=== PATIENT | female | born 1990 | race Caucasian/White ===

== ENCOUNTER 2017-02-02 07:02 | Day surgery (SDC) | payer OTHER ==
[~2017-02-02 07:02] MED LIST: Buffered Lidocaine 0.9% SYRIN* 5 ML/SYR SYRINGE INTRADERM ONE; Famotidine IV* 10 MG/ML 2 ML (20 mg) IV ONE; Morphine INJ* 2 MG/ML 1 ML SYRINGE IV PRN; PROCHLORPERAZINE INJ 5 MG/ML 2 ML VIAL IV PRN; oxyCODONE/Acetamin 5/325 MG* TAB PO PRN
[2017-02-02 07:16] LABS: UR Preg Internal Control QC Line Present
[2017-02-02] MEDS ORDERED: Buffered Lidocaine 0.9% SYRIN* 5 ML/SYR SYRINGE ONE (07:32)
[2017-02-02] MEDS ORDERED: Famotidine IV* 10 MG/ML 2 ML (20 mg) ONE (07:32)
[2017-02-02] MEDS ORDERED: KETAMINE HCL* 50 MG/ML 10 ML VIAL ONE (08:44)
[2017-02-02] MEDS ORDERED: Atracurium* 10 MG/ML 10 ML VIAL ONE (08:44)
[2017-02-02] MEDS ORDERED: fentaNYL* 50 MCG/ML 2 ML VIAL (100 MCG VIAL) ONE ×2 (08:44→09:34)
[2017-02-02] MEDS ORDERED: Midazolam* 1 MG/ML 2 ML VIAL (2 MG) ONE (08:44)
[2017-02-02] MEDS ORDERED: Ondansetron INJ* 2 MG/ML VIAL ONE (09:03)
[2017-02-02] MEDS ORDERED: Glycopyrrolate IV* 0.2 MG/ML 1 ML VIAL ONE ×2 (09:03→09:20)
[2017-02-02] MEDS ORDERED: PROCHLORPERAZINE INJ 5 MG/ML 2 ML VIAL ONE ×2 (09:03→09:48)
[2017-02-02] MEDS ORDERED: Neostigmine Methylsulfate* 2 MG/2 ML SYRINGE ONE ×2 (09:03→09:20)
[2017-02-02] MEDS ORDERED: Dexamethasone IV* 4 MG/ML 1 ML (4 MG) ONE (09:03)
[2017-02-02] MEDS ORDERED: Propofol* 10 MG/ML 20 ML BTL IV PUSH ONE (09:03)
[2017-02-02] MEDS ORDERED: Lidocaine 2% PF * 5 ML VIAL ONE (09:03)
[2017-02-02] MEDS: fentaNYL* 50 MCG/ML 2 ML VIAL (100 MCG VIAL) IV PRN ×4 (09:35→09:52)
[2017-02-02] MEDS ORDERED: oxyCODONE/Acetamin 5/325 MG* TAB ONE (09:48)
[2017-02-02 10:55] VITALS: BP 118/79
--- NOTE | 2017-02-03 06:02 | OP ---
DATE OF OPERATION: 02/02/17 - [facility] DATE OF : 88 SURGEON: Parviz Mcconnell MD CURB HOP: None. ANESTHESIOLOGIST: Ramirez Brenner MD ANESTHESIA: General. PRE-OP DIAGNOSIS: Chronic tonsillitis. POST-OP DIAGNOSIS: Chronic tonsillitis. OPERATIVE PROCEDURE: Tonsillectomy. ESTIMATED BLOOD LOSS: Negligible. SPECIMENS: Right and left tonsils to pathology. INDICATION FOR PROCEDURE: This is a 26-year-old woman who has had multiple recurrent strep tonsillitis. DESCRIPTION OF PROCEDURE: She was brought to the operating room on 02/02/17 for elective tonsillectomy. General anesthesia was induced and an oral endotracheal tube was placed, the patient was draped, table turned, and time-out performed. A McIvor mouth gag was used to facilitate exposure of the oropharynx and was suspended from the [place] stand. The right tonsil was grasped with straight Allis forceps, retracted medially and dissected free of its fossa with a coblation device at a setting of 7 and 3. There was no bleeding. The left tonsil was removed in an identical fashion again with no bleeding. Once the tonsils were removed, the superior and inferior pole regions were prophylactically cauterized with the bipolar function of the device at a setting of 5. The mouth gag was then let down for a period of a minute. It was then opened again, there was no evidence of active bleeding. An orogastric tube was passed into the stomach and the stomach contents were evacuated. The patient was then returned to the care of the anesthesiologist, extubated, and delivered to the PACU in stable condition. [id number]/[facility] #: [id number] MTDD
== END 2017-02-02 11:15 | disposition home or self-care (01) ==
LOC: OR 07:02
PROVIDERS: ATTEND Otolaryngology
DX: J35.01 Chronic tonsillitis (principal); E03.9 Hypothyroidism, unspecified
CPT/HCPCS: 81025; 88304; A9270-GY; J0780; J1100; J2250; J2405; J2704; J3010

== ENCOUNTER 2018-12-15 08:14 | Inpatient (IN) | payer OTHER ==
[2018-12-15] MEDS ORDERED: Oxytocin in LR* 20 UNITS/1,000 ML BAG IVPB SCH ×2 (09:00→20:00)
[2018-12-15] MEDS ORDERED: Penicillin G Potassium IV* 5,000,000 UNITS in NS 0.9% 100 ML* 100 ML IVPB ONE (09:00)
--- NOTE | 2018-12-15 09:01 | HP ---
General Information - Reason for Visit IUP at 40-08/14 here for term IOL - General Information Maternal Age: 28 Grav: 4 Para: 1 SAB: 2 IEA: 0 Estimated Due Date: 12/14/18 Determined By: LMP Gestational Age in Weeks/Days: 40-08/14 Maternal Blood Type and Rh: O Positive - Results this Serology/RPR Result: Non-Reactive Rubella Result: Non-Immune HBsAg Result: Negative HIV Result: Negative GBS Culture Result: Positive Past Medical History Delivery History: Hx Uncomplicated Vaginal Delivery Delivery History Comment: 05/2016 8lbs 12oz female. Delivered at [facility] [place] by Beena Stanton CNM 11/2017 SAB 02/2018 SAB Pertinent Past Medical History: See Records Past Medical History Comment: Thyroid disease Seasonal allergies Pertinent Past Surgical History: See Records Past Surgical History Comment: [place] tooth extraction 01/2006 Oral surgery 07/2016 I & D right breast mastitis 01/2017 Tonsillectomy Pertinent Family History: See Records Family History Comment: Father: A-Fib, COPD, heart murmur, DM Mother: Adan's Thyroiditis Sister: Anxiety, Bipolar PGM: . Ovarian cancer PGF: . Heart disease MGF: . Heart disease - Antepartal Records Antepartal Records: Reviewed, Uncomplicated Review of Systems Constitutional: Comfortable CV Complaint: No Respiratory: Shortness of Breath: No Gastrointestinal: No Nausea/Vomiting, Normal Bowel Movement Genitourinary: No Dysuria, No Bleeding, No Leaking Fluid Musculoskeletal: No Complaint Neurological: No Headache, No Visual Changes Movement: Normal Exam Allergies/Adverse Reactions: Allergies MS Sulfa Antibiotics [Sulfa Antibiotics] Allergy (Verified 02/02/17 07:36) Hives SEASONAL Allergy (Uncoded 02/02/17 07:36) Congestion BP: 123/78 HR 84 RR 17 SpO2 98% on RA T 98.6 - Measurements Height: 5 ft 9 in Weight: 175 lb Weight in lbs: 175.764261 Body Mass Index (BMI): 25.8 Pre- Weight: 140 lb Weight Gained This : 35 lbs and 0 ozs - Exam Breast: Breast Exam Deferred CVA: No CVA Tenderness Extremities: No Edema Heart: Normal Rhythm/Heart Sounds HEENT: No Significant Findings Lungs: Clear Bilaterally Rectal: Rectal Exam Deferred Reflexes: DTR 2+ Thyroid: No Thyromegaly - Abdominal Exam Abdomen Exam: Non-Tender - Ultrasound/Biophysical Profile Ultrasound Status: Not Done Targeted Exam Findings See L&D Outpatient Visit Provider Note for Findings: N/A Estimated Weight: 9lbs by Henrry Cervical Exam: 3cm, 4cm Effacement: 70% Station: 0 Presenting Part: Vertex Membrane Status: Intact Sterile Speculum Exam: Not done Bleeding/Discharge: None EFM Findings - External Monitor Findings Baseline Heart Rate: 125 External Monitor Findings: Accelerations Present, No Pattern of Variable or Late Decelerations, Variability Moderate, Baseline Stable External Monitor Findings Comment: No evidence of metabolic acidemia Contractions: None Assessment/Plan - Assessment IUP at 40-1/7 here for term IOL No evidence of metabolic acidemia - Obstetrical Risk Factors Obstetrical Risk Factors: GBS Positive - plan abx per protocol once in active labor or with SROM - Plan Plan: Induction Plan Comment: P: Admit. Counseled for IV pitocin and possible amniotomy. Pt and FOB agree. Will want CEI placement with increased discomfort. Anticipate . Dr. Fairbanks aware of pt presence and condition - Date/Time of Admission Date of Admission: 12/15/18 Time of Admission: 08:37
[2018-12-15 09:27] LABS: ABS Lymphocytes 0.7 10^3/ul (1.0-4.8); ABS Monocytes 0.7 10^3/ul (0-0.8); ABS Neutrophils 6.4 10^3/ul (1.5-7.7); Eosinophil % 0.4 %; Hematocrit 34 % (35-47); Hemoglobin 12.2 g/dL (12.0-16.0); Lymphocyte % 9.5 %; Mean Corpuscular HGB Conc 36 g/dL (31-36); Mean Corpuscular Hemoglobin 32 pg (27-31); Mean Corpuscular Volume 89 fL (80-97); Mean Platelet Volume 8.7 fL (7.4-10.4); Nucleated Red Blood Cells % 0.2; Platelet Count 171 10^3/uL (150-450); Red Blood Count 3.86 10^6 /uL (3.70-4.87); Red Cell Distribution Width 13 % (10.5-15); White Blood Count 7.9 10^3/uL (3.5-10.8)
--- NOTE | 2018-12-15 12:24 | PN ---
Progress Note - Progress Note Date of Service: 12/15/18 Note: S: Pt up on ball, denies strong UCs but aware of them O: BP 107/70 HR 90 T 97.9 FHT 150bpm. Moderate variability. +Accels. No decels UCs q 3-4. IV pitocin increased from 3mu/min to 5mu/min VE: 4-5/70%/vtx 0, membranes swept IV penicillin up as of 1100 for GBS prophylaxis A: IUP at 40-1/7 in latent labor No evidence of metabolic acidemia P: Consider AROM in 1-2 hours or re-evaluate sooner PRN.
--- NOTE | 2018-12-15 14:14 | PN ---
Progress Note - Progress Note Date of Service: 12/15/18 Note: S: Pt feeling ready for AROM O: BP 119/79 HR 75 FHT 125bpm. Moderate variability. +Accels. No decels UCs q 2-3 IV pit at 5mu/min VE: 4-5cm/80%/vtx 0 station, AROM moderate clear fluid A: IUP at 40-1/7 in early active labor No evidence of metabolic acidemia GBS+, first dose of abx given at 1100 P: Pt will request epidural with increased discomfort. Anticipate
[2018-12-15] MEDS ORDERED: Penicillin G Potassium IV* 2,500,000 UNITS in NS 0.9% 100 ML* 100 ML IVPB SCH (15:00)
[2018-12-15] MEDS ORDERED: OBEPIDURAL* 250 ML EPIDURAL ONE (15:01)
[2018-12-15] MEDS: Lactated Ringers 1000 ML Bag* 1,000 ML IV SCH ×2 (15:06→18:34)
--- NOTE | 2018-12-15 15:06 | PN ---
Progress Note - Progress Note Date of Service: 12/15/18 Note: Quick Note Pt requesting CEI placement. Anesthesia paged for consult
--- NOTE | 2018-12-15 16:38 | PN ---
Progress Note - Progress Note Date of Service: 12/15/18 Note: S: Pt feeling comfortable s/p epidural. Recently started to feel kind of nauseous but improved with position change off her back. O: BP 102/62 HR 63 FHT 125bpm. Moderate variability. +Accels. No decels UCs q 2-5 IV pitocin increased from 5mu/min to 7mu/min VE: 6cm/90%/vtx 0, clear fluid A: IUP at 40-1/7 in active labor No evidence of metabolic acidemia P: Continue to monitor pt status, close monitoring of BPs s/p CEI and position. Enc rest. Anticipate
--- NOTE | 2018-12-15 18:07 | PN ---
Progress Note - Progress Note Date of Service: 12/15/18 Note: S: Pt reports increased pressure with UCs O: BP 112/76 HR 78 FHT 120bpm. Moderate variability. +Accels. Some early type decels UCs q 2-3 min IV pitocin at 6mu/min VE 7cm/90%/vtx +1 A: IUP at 40-1/7 in active labor Cat II FHT, doubt metabolic acidemia P: Close monitoring of maternal/ status. Anticipate trial of pushing soon
[2018-12-15] MEDS ORDERED: Glycerin ADULT SUPP PR PRN (19:18)
[2018-12-15] MEDS ORDERED: Measles, Mumps,Rubella VACC* 0.5 ML/VIAL SUBCUT ONE (19:18)
[2018-12-15] MEDS ORDERED: Witch Hazel PAD* JAR TOPICAL PRN (19:18)
[2018-12-15] MEDS ORDERED: Dibucaine 1% 28.35 GM TUBE PR PRN (19:18)
--- NOTE | 2018-12-15 19:26 | PROCNOTE ---
[facility] OB: Delivery Note - Delivery A Date of : 12/15/18 Time of : 19:01 [place] Sex: Male Score 1 Minute: 9 Score 5 Minutes: 9 Gestational Age in Weeks and Days at Delivery: 40 Weeks and 1 Days Delivery Method: Spontaneous Vaginal Labor: Induced Did Patient attempt ?: N/A, No Previous Amniotic Fluid: Clear Estimated Blood Loss: 400 Anesthesia/Analgesia: CEI for Labor Anesthesia Comment: Dr. Barrios Delivered By: Beena Stanton - Nursery Level of Nursery: Regular/Bedside - Perineum Perineal Injury: None/Intact Perineal Repair: None - Events Delivery Events of Note: Pitocin During Labor, Full Course of Antibiotics - for gbs prophylaxis - Additional Delivery Notes Additional Delivery Notes: Pt admitted for term induction of labor at 40-08/14. IV pitocin and amniotomy to clear fluid led to onset of active labor. Epidural given per pt preference with excellent relief. Length of labor 8 hours, 7 min. Pushed x 16 minutes. liveborn male. Slow, controlled delivery of head. OA to SHANTA. Shoulders followed easily. [place] vigorous with spontaneous cry. HR>110bpm. Due to a very short cord delivered to pubic symphysis and supported by RN and CNM while cord stopped pulsating. Cord clamped x 2 and cut by FOB when pulsations ceased. moved to maternal abdomen. Spontaneous delivery intact placenta. Membranes complete. Fundus firm to massage with IV pitocin infusing. Perineum intact. No repair needed as above. EBL 400mL. At time of note mother and infant in stable condition. Planning to breast feed.
[2018-12-15] MEDS ORDERED: Lactated Ringers 1000 ML Bag* 1,000 ML IV SCH (20:00)
[2018-12-15] MEDS ORDERED: Simethicone TAB* 80 MG TAB.CHEW PO SCH (21:00)
[2018-12-16] MEDS: Ibuprofen TAB* 600 MG PO PRN ×3 (03:13→18:07)
[2018-12-16] MEDS ORDERED: Levothyroxine TAB* 137 MCG TAB PO SCH (06:00)
[2018-12-16] MEDS: LEVOTHYROXINE 112 MCG PO SCH (06:38)
[2018-12-16] MEDS: Docusate CAP* 100 MG PO SCH ×5 (07:28→21:31)
[2018-12-16 08:51] LABS: ABS Eosinophils 0.1 10^3/ul (0-0.6); ABS Lymphocytes 1.2 10^3/ul (1.0-4.8); ABS Monocytes 1.1 10^3/ul (0-0.8); ABS Neutrophils 12.5 10^3/ul (1.5-7.7); Eosinophil % 0.4 %; Hematocrit 35 % (35-47); Hemoglobin 12.4 g/dL (12.0-16.0); Lymphocyte % 7.8 %; Mean Corpuscular HGB Conc 35 g/dL (31-36); Mean Corpuscular Hemoglobin 32 pg (27-31); Mean Corpuscular Volume 90 fL (80-97); Mean Platelet Volume 8.5 fL (7.4-10.4); Platelet Count 160 10^3/uL (150-450); Red Blood Count 3.93 10^6 /uL (3.70-4.87); Red Cell Distribution Width 13 % (10.5-15); White Blood Count 14.8 10^3/uL (3.5-10.8)
[2018-12-16] MEDS ORDERED: Ferrous Gluconate TAB* 324 MG TAB PO SCH (09:00)
[2018-12-16] MEDS: Acetaminophen TAB* 325 MG PO PRN (21:31)
[2018-12-17] MEDS: Ibuprofen TAB* 600 MG PO PRN ×3 (01:06→13:41)
[2018-12-17] MEDS: Acetaminophen TAB* 325 MG PO PRN ×3 (04:25→15:24)
[2018-12-17] MEDS: LEVOTHYROXINE 112 MCG PO SCH (07:27)
[2018-12-17] MEDS: Docusate CAP* 100 MG PO SCH (08:36)
[2018-12-17 08:37] VITALS: BP 108/71
[2018-12-18] MEDS ORDERED: LEVOTHYROXINE 112 MCG PO SCH (06:00)
== END 2018-12-17 15:43 | disposition home or self-care (01) | DRG 807 ==
LOC: MCHOBOUT 08:14 → MCHOB 08:37
PROVIDERS: ADMIT Midwife; ATTEND Midwife
PROC: 10E0XZZ Delivery of Products of Conception, External Approach (ICD-10-PCS; principal; 2018-12-15)
PROC: 3E033VJ Introduction of Other Hormone into Peripheral Vein, Percutaneous Approach (ICD-10-PCS; 2018-12-15)
PROC: 10907ZC Drainage of Amniotic Fluid, Therapeutic from Products of Conception, Via Natural or Artificial Opening (ICD-10-PCS; 2018-12-15)
DX: O48.0 Post-term pregnancy (principal); Z37.0 Single live birth; O99.284 Endocrine, nutritional and metabolic diseases complicating childbirth; E07.9 Disorder of thyroid, unspecified; O99.824 Streptococcus B carrier state complicating childbirth; O32.6XX0 Maternal care for compound presentation, not applicable or unspecified; O76 Abnormality in fetal heart rate and rhythm complicating labor and delivery; Z3A.40 40 weeks gestation of pregnancy
CPT/HCPCS: 36415; 85025; 86850; 86900; 86901; 90707; A9270-GY; J2540